=== PATIENT | female | born 1975 | race Caucasian/White ===

== ENCOUNTER 2022-06-05 08:21 | Emergency (ER) | payer SELFPAY ==
[~2022-06-05] VITALS: Ht 160 cm; Wt 65.8 kg
[2022-06-05 09:02] LABS: BASOPHILS # (AUTO) 0.1 (0.0-0.1); BASOPHILS % 1.5 % (0.0-1.0); EOSINOPHILS # (AUTO) 0.5 (0.0-0.4); EOSINOPHILS % 5.5 % (0.0-6.0); HEMATOCRIT 31.8 % (34.2-44.1); HEMOGLOBIN 9.5 g/dL (12.0-16.0); LYMPHOCYTES # (AUTO) 2.1 (1.0-3.2); LYMPHOCYTES % 21.7 % (18.0-39.1); MEAN CORPUSCULAR HEMOGLOBIN 23.7 pg (28-32); MEAN CORPUSCULAR HGB CONC 29.9 g/dL (31-35); MEAN CORPUSCULAR VOLUME 79.3 fL (81-99); MONOCYTES # (AUTO) 1.1 (0.2-0.8); MONOCYTES % 11.6 % (4.4-11.3); NEUTROPHILS # (AUTO) 5.6 (2.1-6.9); NEUTROPHILS % 59.2 % (38.7-80.0); PLATELET COUNT 422 x10e3/uL (140-360); RED BLOOD COUNT 4.01 x10e6/uL (3.6-5.1)
[2022-06-05 09:32] LABS: ALBUMIN 4.1 g/dL (3.5-5.0); ALBUMIN/GLOBULIN RATIO 1.4 (0.8-2.0); ANION GAP 14.4 mmol/L (8-16); CALCIUM 8.9 mg/dL (8.4-10.2); CREATININE, SERUM 0.72 mg/dL (0.57-1.11); POTASSIUM 4.4 mmol/L (3.5-5.1)
[2022-06-05] MEDS ORDERED: NAPROXEN250 MG PO (09:43)
== END 2022-06-05 10:02 | disposition home or self-care (01) ==
LOC: ER 08:24
DX: R07.89 Other chest pain (principal); F17.210 Nicotine dependence, cigarettes, uncomplicated
CPT/HCPCS: 36415; 71045; 80053; 84484; 85025; 93005; 99284

== ENCOUNTER 2022-07-06 02:07 | Emergency (ER) | payer MEDICARE ==
[~2022-07-06] VITALS: Ht 160 cm; Wt 65.8 kg
[~2022-07-06 02:07] MED LIST: NAPROXEN250 MG PO
[2022-07-06 02:31] LABS: BENZODIAZEPINES SCREEN,URINE NEGATIVE (NEGATIVE); CLARITY,URINE CLEAR (CLEAR); COLOR,URINE YELLOW (YELLOW); KETONES,URINE NEGATIVE (NEGATIVE); LEUKOCYTE ESTERASE ,URINE NEGATIVE (NEGATIVE); NITRITE,URINE NEGATIVE (NEGATIVE); PHENCYCLIDINE SCREEN,URINE NEGATIVE (NEGATIVE); PROTEIN,URINE DIPSTICK NEGATIVE (NEGATIVE)
[2022-07-06 02:32] LABS: AMPHETAMINES SCREEN,URINE POSITIVE (NEGATIVE)
[2022-07-06 02:33] LABS: BACTERIA,URINE FEW /HPF; RBC,URINE 0-5 /HPF (0-5); URINE UROBILINOGEN 0.2 mg/dL (0.2 - 1); WBC,URINE (MAN) 0-5 /HPF (0-5)
[2022-07-06 02:34] LABS: BASOPHILS # (AUTO) 0.2 (0.0-0.1); BASOPHILS % 1.7 % (0.0-1.0); EOSINOPHILS # (AUTO) 0.8 (0.0-0.4); EOSINOPHILS % 8.4 % (0.0-6.0); HEMATOCRIT 30.2 % (34.2-44.1); HEMOGLOBIN 9.2 g/dL (12.0-16.0); LYMPHOCYTES # (AUTO) 2.6 (1.0-3.2); LYMPHOCYTES % 27.9 % (18.0-39.1); MEAN CORPUSCULAR HEMOGLOBIN 22.7 pg (28-32); MEAN CORPUSCULAR HGB CONC 30.5 g/dL (31-35); MEAN CORPUSCULAR VOLUME 74.4 fL (81-99); MONOCYTES % 10.7 % (4.4-11.3); NEUTROPHILS # (AUTO) 4.7 (2.1-6.9); PLATELET COUNT 412 x10e3/uL (140-360); RED BLOOD COUNT 4.06 x10e6/uL (3.6-5.1); RED CELL DISTRIBUTION WIDTH 14.8 % (11.7-14.4)
[2022-07-06 02:48] LABS: ALANINE AMINOTRANSFERASE 15 IU/L (0-55); ALBUMIN/GLOBULIN RATIO 1.4 (0.8-2.0); ALKALINE PHOSPHATASE 49 IU/L (40-150); BLOOD UREA NITROGEN 12 mg/dL (7-26); BUN/CREATININE RATIO 19 (6-25); CALCIUM 9.1 mg/dL (8.4-10.2); CARBON DIOXIDE 21 mmol/L (22-29); CHLORIDE 107 mmol/L (98-107); CREATINE KINASE 64 IU/L (29-168); CREATININE, SERUM 0.63 mg/dL (0.57-1.11); GLUCOSE 106 mg/dL (74-118); SODIUM 137 mmol/L (136-145)
[2022-07-06 02:52] LABS: EPITHELIAL CELLS,URINE MODERATE /LPF
[2022-07-06 03:29] VITALS: BP 119/71
== END 2022-07-06 03:39 | disposition home or self-care (01) ==
LOC: ER 02:09
DX: R07.89 Other chest pain (principal); F15.10 Other stimulant abuse, uncomplicated; F41.9 Anxiety disorder, unspecified; F17.210 Nicotine dependence, cigarettes, uncomplicated
CPT/HCPCS: 36415; 71045; 80053; 80307; 81001; 82550; 82553; 84484; 85025; 93005; 99284

== ENCOUNTER 2023-04-20 15:42 | Emergency (ER) | payer OTHER ==
[~2023-04-20] VITALS: Ht 149.9 cm; Wt 66.7 kg
[~2023-04-20 15:42] MED LIST changes: +CLEOCIN HCL300 MG PO; +FERROUS SULFAT325 MG PO; +KETOROLAC TROME10 MG PO; +LEVOFLOXACIN500 MG PO; +ONDANSETRON ODT4 MG PO
[2023-04-20] MEDS ORDERED: KETOROLAC TROMETHAMINE 30 MG/ML VIAL IV STA (15:58)
[2023-04-20] MEDS ORDERED: KETOROLAC TROMETHAMINE 30 MG/ML VIAL ONE (16:18)
[2023-04-20] MEDS ORDERED: ASPIRIN325 MG PO (16:34)
[2023-04-20 20:49] VITALS: O2SAT 98
== END 2023-04-20 20:50 | disposition home or self-care (01) ==
LOC: FSED 16:53
DX: R07.89 Other chest pain (principal); F41.9 Anxiety disorder, unspecified; F31.9 Bipolar disorder, unspecified
CPT/HCPCS: 71046; 80053; 82553; 84484; 85025; 99284; J1885; 93005

== ENCOUNTER 2023-11-06 05:04 | Emergency (ER) | payer OTHER ==
[~2023-11-06] VITALS: Ht 149.9 cm; Wt 64.9 kg
[~2023-11-06 05:04] MED LIST changes: +ABILIFY10 MG PO; +ASPIRIN325 MG PO; +CLINDAMYCIN HC300 MG PO
[2023-11-06] MEDS ORDERED: IOPAMIDOL 370 MG/ML 100 ML INFUS..BTL INJ ONE (05:45)
[2023-11-06] MEDS: FAMOTIDINE 20 MG/2 ML VIAL IV STA (06:43)
[2023-11-06] MEDS: KETOROLAC TROMETHAMINE 30 MG/ML VIAL IV STA (06:44)
[2023-11-06] MEDS ORDERED: CIPRO500 MG PO (07:13)
[2023-11-06] MEDS ORDERED: KETOROLAC TROME10 MG PO (07:13)
[2023-11-06 07:20] VITALS: PULSE 93; RESP 18; TEMP 98.1; O2SAT 100
[2023-11-06] MEDS ORDERED: ONDANSETRON ODT4 MG PO (07:22)
== END 2023-11-06 07:20 | disposition home or self-care (01) ==
LOC: FSED 05:25
DX: R10.12 Left upper quadrant pain (principal); N28.84 Pyelitis cystica; D25.9 Leiomyoma of uterus, unspecified; R11.0 Nausea; F41.9 Anxiety disorder, unspecified; F15.90 Other stimulant use, unspecified, uncomplicated; F17.210 Nicotine dependence, cigarettes, uncomplicated
CPT/HCPCS: 74177; 80048; 80076; 80307; 81003; 81025; 85025; 96374; 96375; 99284; J1885; Q9967

== ENCOUNTER 2023-11-28 01:28 | Emergency (ER) | payer OTHER ==
[~2023-11-28] VITALS: Ht 149.9 cm; Wt 64.9 kg
[~2023-11-28 01:28] MED LIST changes: +CIPRO500 MG PO
[2023-11-28] MEDS: LORAZEPAM INJ 2 MG/ML VIAL IV ONE (02:00)
[2023-11-28] MEDS: SODIUM CHLORIDE 0.9% 1000ML 1,000 ML IV ONE (02:01)
[2023-11-28] MEDS ORDERED: CENTRUM ADULTS1 EACH PO (02:05)
[2023-11-28] MEDS ORDERED: B-1100 M1 PO (02:06)
[2023-11-28] MEDS ORDERED: VISTARIL25 MG PO (02:08)
[2023-11-28 02:55] VITALS: PULSE 78; RESP 18; TEMP 98.6; O2SAT 98
== END 2023-11-28 02:55 | disposition home or self-care (01) ==
LOC: FSED 01:33
DX: F41.9 Anxiety disorder, unspecified (principal); F10.239 Alcohol dependence with withdrawal, unspecified; F32.A Depression, unspecified
CPT/HCPCS: 99283; J2060; J7030

== ENCOUNTER 2023-12-21 00:58 | Emergency (ER) | payer OTHER ==
[~2023-12-21] VITALS: Ht 149.9 cm; Wt 64.9 kg
[~2023-12-21 00:58] MED LIST changes: +B-1100 M1 PO; +CENTRUM ADULTS1 EACH PO; +VISTARIL25 MG PO
[2023-12-21 01:47] VITALS: BP 137/81; PULSE 81
[2023-12-21] MEDS: SODIUM CHLORIDE 0.9% 1000ML 1,000 ML IV ONE (01:53)
[2023-12-21] MEDS: TRAMADOL HCL 50 MG TAB PO ONE (02:18)
[2023-12-21] MEDS ORDERED: MIDOL COMPLETE1 EACH PO (03:25)
[2023-12-21 03:34] VITALS: PULSE 82; RESP 16; TEMP 98; O2SAT 96
== END 2023-12-21 03:40 | disposition home or self-care (01) ==
LOC: FSED 01:22
DX: N92.0 Excessive and frequent menstruation with regular cycle (principal); D25.9 Leiomyoma of uterus, unspecified
CPT/HCPCS: 76856; 80053; 80307; 81003; 81025; 85025; 85610; 99284; J7030

== ENCOUNTER 2024-01-11 01:55 | Emergency (ER) | payer OTHER ==
[~2024-01-11] VITALS: Ht 149.9 cm; Wt 59.0 kg
[~2024-01-11 01:55] MED LIST changes: +MIDOL COMPLETE1 EACH PO
[2024-01-11 02:30] VITALS: PULSE 87; RESP 20; TEMP 97.7; O2SAT 99
== END 2024-01-11 03:08 | disposition short-term general hospital (02) ==
LOC: FSED 01:58
DX: N92.0 Excessive and frequent menstruation with regular cycle (principal); D25.9 Leiomyoma of uterus, unspecified; F41.9 Anxiety disorder, unspecified; F31.9 Bipolar disorder, unspecified; F17.210 Nicotine dependence, cigarettes, uncomplicated

== ENCOUNTER 2024-01-11 03:15 | Emergency (ER) | payer OTHER ==
[~2024-01-11] VITALS: Ht 149.9 cm; Wt 59.0 kg
[2024-01-11 03:23] VITALS: PULSE 88; RESP 16; TEMP 98.1; O2SAT 100
[2024-01-11 03:45] LABS: BASOPHILS # (AUTO) 0.1 (0.0-0.1); BASOPHILS % 1.4 % (0.0-1.0); EOSINOPHILS # (AUTO) 0.3 (0.0-0.4); EOSINOPHILS % 3.4 % (0.0-6.0); HEMATOCRIT 36.4 % (34.2-44.1); HEMOGLOBIN 11.6 g/dL (12.0-16.0); LYMPHOCYTES # (AUTO) 2.4 (1.0-3.2); LYMPHOCYTES % 29.6 % (18.0-39.1); MEAN CORPUSCULAR HEMOGLOBIN 27.6 pg (28-32); MEAN CORPUSCULAR HGB CONC 31.9 g/dL (31-35); MEAN CORPUSCULAR VOLUME 86.7 fL (81-99); MONOCYTES # (AUTO) 0.8 (0.2-0.8); MONOCYTES % 10.5 % (4.4-11.3); NEUTROPHILS # (AUTO) 4.4 (2.1-6.9); NEUTROPHILS % 54.9 % (38.7-80.0); PLATELET COUNT 279 x10e3/uL (140-360); RED CELL DISTRIBUTION WIDTH 15.6 % (11.7-14.4); WHITE BLOOD COUNT 8.02 x10e3/uL (4.8-10.8)
== END 2024-01-11 03:57 | disposition home or self-care (01) ==
LOC: ER 03:20
DX: N93.8 Other specified abnormal uterine and vaginal bleeding (principal); D25.9 Leiomyoma of uterus, unspecified; F31.9 Bipolar disorder, unspecified; F41.9 Anxiety disorder, unspecified; F17.210 Nicotine dependence, cigarettes, uncomplicated
CPT/HCPCS: 36415; 84702; 85025; 99283

== ENCOUNTER 2024-05-27 20:08 | Emergency (ER) | payer OTHER ==
[~2024-05-27] VITALS: Ht 149.9 cm; Wt 64.4 kg
[2024-05-27 20:25] VITALS: PULSE 97; RESP 20; TEMP 98.1
[2024-05-27 20:37] LABS: BASOPHILS # (AUTO) 0.1 (0.0-0.1); BASOPHILS % 1.1 % (0.0-1.0); EOSINOPHILS # (AUTO) 0.4 (0.0-0.4); EOSINOPHILS % 5.1 % (0.0-6.0); HEMATOCRIT 42.9 % (34.2-44.1); HEMOGLOBIN 13.4 g/dL (12.0-16.0); LYMPHOCYTES # (AUTO) 1.6 (1.0-3.2); LYMPHOCYTES % 22.4 % (18.0-39.1); MEAN CORPUSCULAR HEMOGLOBIN 28.8 pg (28-32); MEAN CORPUSCULAR HGB CONC 31.2 g/dL (31-35); MEAN CORPUSCULAR VOLUME 92.1 fL (81-99); NEUTROPHILS # (AUTO) 4.1 (2.1-6.9); NEUTROPHILS % 56.7 % (38.7-80.0); PLATELET COUNT 315 x10e3/uL (140-360); RED BLOOD COUNT 4.66 x10e6/uL (3.6-5.1); RED CELL DISTRIBUTION WIDTH 15.3 % (11.7-14.4); WHITE BLOOD COUNT 7.29 x10e3/uL (4.8-10.8)
[2024-05-27 20:59] LABS: ALANINE AMINOTRANSFERASE 24 IU/L (0-55); ALBUMIN 3.7 g/dL (3.5-5.0); ALBUMIN/GLOBULIN RATIO 1.5 (0.8-2.0); ALKALINE PHOSPHATASE 56 IU/L (40-150); ANION GAP 13.9 mmol/L (8-16); BILIRUBIN,TOTAL 0.3 mg/dL (0.2-1.2); BLOOD UREA NITROGEN 10 mg/dL (7-26); BUN/CREATININE RATIO 14 (6-25); CALCIUM 8.8 mg/dL (8.4-10.2); CARBON DIOXIDE 26 mmol/L (22-29); CHLORIDE 106 mmol/L (98-107); CREATINE KINASE 89 IU/L (29-168); CREATININE, SERUM 0.71 mg/dL (0.57-1.11); EST GLOMERULAR FILTRATION RATE 105 ML/MIN (>=60); GLUCOSE 88 mg/dL (74-118); POTASSIUM 3.9 mmol/L (3.5-5.1); SODIUM 142 mmol/L (136-145); TOTAL PROTEIN 6.1 g/dL (6.5-8.1)
[2024-05-27 21:00] LABS: LIPASE 24 U/L (8-78)
[2024-05-27 21:01] LABS: ETHANOL < 10.0 mg/dL (0.0-10.0)
[2024-05-27 21:06] LABS: TROPONIN I < 0.001 ng/mL (0-0.300)
[2024-05-27 22:12] VITALS: BP 112/72; PULSE 79; RESP 18; TEMP 98.2; O2SAT 100
== END 2024-05-27 22:11 | disposition home or self-care (01) ==
LOC: ER 20:15
DX: R42 Dizziness and giddiness (principal); R07.89 Other chest pain; F15.10 Other stimulant abuse, uncomplicated; F31.9 Bipolar disorder, unspecified; F41.9 Anxiety disorder, unspecified
CPT/HCPCS: 36415; 71045; 80053; 80320; 82550; 83690; 83880; 84484; 85025; 93005; 99284

== ENCOUNTER 2024-07-09 04:41 | Emergency (ER) | payer OTHER ==
[~2024-07-09] VITALS: Ht 149.9 cm; Wt 65.8 kg
[2024-07-09] MEDS: FLUORESCEIN SOD(OPTH) 1 MG STRP OP ONE (06:01)
[2024-07-09] MEDS: TETRACAINE HCL 0.5% OPTH SOLN 4 ML BTL OP ONE (06:01)
[2024-07-09] MEDS: ERYTHROMYCIN (OPTH) 3.5 GM OINT OP SCH (06:26)
[2024-07-09] MEDS ORDERED: ERYTHROMYCIN 2%60 ML OU (06:27)
[2024-07-09 06:35] VITALS: PULSE 71; RESP 15; TEMP 97.9; O2SAT 98
[2024-07-09] MEDS ORDERED: CIPROFLOXACIN (OPTH SOLN) 5 ML BTL OP SCH (09:00)
== END 2024-07-09 06:39 | disposition home or self-care (01) ==
LOC: FSED 05:15
DX: H57.13 Ocular pain, bilateral (principal); S05.02XA Injury of conjunctiva and corneal abrasion without foreign body, left eye, initial encounter; S05.01XA Injury of conjunctiva and corneal abrasion without foreign body, right eye, initial encounter; F41.9 Anxiety disorder, unspecified; F31.9 Bipolar disorder, unspecified; F17.210 Nicotine dependence, cigarettes, uncomplicated
CPT/HCPCS: 99284

== ENCOUNTER 2024-09-20 17:29 | Emergency (ER) | payer OTHER ==
[~2024-09-20] VITALS: Ht 149.9 cm; Wt 63.5 kg
[~2024-09-20 17:29] MED LIST changes: +ERYTHROMYCIN 2%60 ML OU
[2024-09-20 17:45] VITALS: TEMP 98.1
[2024-09-20] MEDS ORDERED: NAPROSYN500 MG PO (18:49)
[2024-09-20] MEDS ORDERED: ORPHENADRINE C100 MG PO (18:49)
[2024-09-20] MEDS: ORPHENADRINE CITRATE 30 MG/ML VIAL IM ONE (19:47)
[2024-09-20] MEDS: KETOROLAC TROMETHAMINE 60 MG/2 ML VIAL IM ONE (19:47)
[2024-09-20 20:26] VITALS: PULSE 81; RESP 16; O2SAT 98
== END 2024-09-20 20:12 | disposition home or self-care (01) ==
LOC: ER 18:36
DX: M54.2 Cervicalgia (principal); M62.838 Other muscle spasm; F31.9 Bipolar disorder, unspecified; F41.9 Anxiety disorder, unspecified; F17.210 Nicotine dependence, cigarettes, uncomplicated
CPT/HCPCS: 99283; J1885; J2360

== ENCOUNTER 2025-02-24 22:13 | Emergency (ER) | payer SELFPAY ==
[~2025-02-24] VITALS: Ht 149.9 cm; Wt 59.0 kg
[~2025-02-24 22:13] MED LIST changes: +NAPROSYN500 MG PO; +ORPHENADRINE C100 MG PO
[2025-02-25 02:01] VITALS: PULSE 81; RESP 16; TEMP 97.7; O2SAT 100
== END 2025-02-25 02:06 | disposition home or self-care (01) ==
LOC: ER 22:54
DX: R68.84 Jaw pain (principal); S00.83XA Contusion of other part of head, initial encounter; Y04.0XXA Assault by unarmed brawl or fight, initial encounter; Y92.89 Other specified places as the place of occurrence of the external cause; F41.9 Anxiety disorder, unspecified; F32.A Depression, unspecified; F17.210 Nicotine dependence, cigarettes, uncomplicated
CPT/HCPCS: 70450; 70486; 72125; 99283